=== PATIENT | female | born 1955 | race Caucasian/White ===

== ENCOUNTER 2021-12-08 10:41 | Inpatient (IN) ==
[2021-12-08] MEDS ORDERED: Fluticasone Propionate Nasal 50 MCG/SPRAY BOTTLE NS PRN (15:51)
[2021-12-08] MEDS ORDERED: D5% in Water 1,000 ML IVC PRN (15:53)
[2021-12-08] MEDS ORDERED: *HR* Dextrose 50 % in Water (Syg) 50 ML SYRINGE IVP PRN (15:53)
[2021-12-08] MEDS ORDERED: Dextrose Gel 15 GM/37.5 ML TUBE PO PRN ×2 (15:53)
[2021-12-08] MEDS: Torsemide 20 MG TABLET PO SCH (17:26)
[2021-12-08] MEDS: *HR* Metformin 500 MG TABLET PO SCH (17:27)
[2021-12-08] MEDS: Insulin LISPRO 300 UNITS/3 ML VIAL SUBQ SCH ×2 (17:30→21:50)
[2021-12-08] MEDS: Insulin DETEMIR 100 UNIT/ML X5UNITS SUBQ SCH (21:50)
[2021-12-09 08:15] LABS: Eosinophils # 0.1 K/mcL (0.0-0.6); Hematocrit 26.4 % (35.3-44.9); Hemoglobin 8.3 g/dL (11.5-15.4); Mean Corpuscular HGB Conc 31.4 g/dL (31.6-35.5); Mean Corpuscular Hemoglobin 27.2 pg (28.0-33.3); Mean Corpuscular Volume 86.6 fL (83.0-100.0); Mean Platelet Volume 10.2 fL (9.4-12.4); Platelet Count 140 K/mcL (140-400); Red Blood Count 3.05 M/mcL (3.82-4.97); Red Cell Distribution Width 15.1 % (11.5-14.5); White Blood Count 5.5 K/mcL (4.3-11.1)
[2021-12-09 08:30] LABS: Calcium 9.4 mg/dL (8.6-10.3); Potassium 3.3 mEq/L (3.5-5.1)
[2021-12-09] MEDS: *HR* Metformin 500 MG TABLET PO SCH (08:53)
[2021-12-09] MEDS: Loratadine 10 MG TABLET PO SCH (08:53)
[2021-12-09] MEDS: Torsemide 20 MG TABLET PO SCH ×2 (08:54→16:45)
[2021-12-09] MEDS: Insulin LISPRO 300 UNITS/3 ML VIAL SUBQ SCH ×4 (08:54→21:33)
[2021-12-09] MEDS: Lactulose Oral Soln 20 GM/30 ML UDC PO SCH (08:55)
[2021-12-09] MEDS: [UNRECOGNIZED DRUG - OTHER] PO SCH (08:56)
[2021-12-09] MEDS: Insulin DETEMIR 100 UNIT/ML X5UNITS SUBQ SCH ×2 (09:00→21:33)
[2021-12-09 09:10] LABS: Lymphocytes # 0.3 K/mcL (0.6-4.6); Monocytes # 0.3 K/mcL (0.0-1.3); Neutrophils # 4.6 K/mcL (1.6-8.9)
[2021-12-09 09:11] LABS: Platelet Estimate Normal (Normal)
[2021-12-09] MEDS: Benzonatate 100 MG CAPSULE PO SCH ×3 (12:39→21:31)
[2021-12-09] MEDS ORDERED: *HR* Heparin 5,000 UNIT/ML VIAL SQ SCH (14:00)
[2021-12-10 08:28] LABS: Basophils % 0.4 %; Eosinophils # 0.1 K/mcL (0.0-0.6); Eosinophils % 1.9 %; Hematocrit 26.2 % (35.3-44.9); Hemoglobin 8.2 g/dL (11.5-15.4); Immature Granulocytes % 4.7 % (0-4); Lymphocytes # 0.5 K/mcL (0.6-4.6); Lymphocytes % 11.2 %; Mean Corpuscular HGB Conc 31.3 g/dL (31.6-35.5); Mean Corpuscular Hemoglobin 27.1 pg (28.0-33.3); Mean Corpuscular Volume 86.5 fL (83.0-100.0); Monocytes # 0.4 K/mcL (0.0-1.3); Monocytes % 7.8 %; Neutrophils # 3.5 K/mcL (1.6-8.9); Platelet Count 136 K/mcL (140-400); Red Blood Count 3.03 M/mcL (3.82-4.97); Red Cell Distribution Width 15.2 % (11.5-14.5); White Blood Count 4.7 K/mcL (4.3-11.1)
[2021-12-10 08:44] LABS: Potassium 3.3 mEq/L (3.5-5.1)
[2021-12-10] MEDS: Torsemide 20 MG TABLET PO SCH ×2 (10:18→17:03)
[2021-12-10] MEDS: Multivit/Ca/Min/Fe/FA 1 TAB TABLET PO SCH (10:18)
[2021-12-10] MEDS: Loratadine 10 MG TABLET PO SCH (10:19)
[2021-12-10] MEDS: Benzonatate 100 MG CAPSULE PO SCH ×3 (10:19→21:20)
[2021-12-10] MEDS: Megestrol Acetate 400 MG/10 ML UDC PO SCH (10:20)
[2021-12-10] MEDS: Lactulose Oral Soln 20 GM/30 ML UDC PO SCH (10:20)
[2021-12-10] MEDS: Insulin LISPRO 300 UNITS/3 ML VIAL SUBQ SCH ×4 (10:21→21:23)
[2021-12-10] MEDS: Insulin DETEMIR 100 UNIT/ML X5UNITS SUBQ SCH ×2 (10:21→21:20)
[2021-12-10] MEDS: [UNRECOGNIZED DRUG - OTHER] PO SCH (10:22)
[2021-12-10] MEDS: Piperacillin/Tazobactam 3.375 GM in 0.9 % Sodium Chloride Mini Bag 100 ML IVPB SCH (15:13)
[2021-12-11] MEDS: Piperacillin/Tazobactam 3.375 GM in 0.9 % Sodium Chloride Mini Bag 100 ML IVPB SCH ×3 (00:14→15:35)
[2021-12-11] MEDS: Loratadine 10 MG TABLET PO SCH (08:08)
[2021-12-11] MEDS: Lactulose Oral Soln 20 GM/30 ML UDC PO SCH (08:08)
[2021-12-11] MEDS: Benzonatate 100 MG CAPSULE PO SCH ×3 (08:08→22:55)
[2021-12-11] MEDS: Spironolactone 25 MG TABLET PO SCH (08:08)
[2021-12-11] MEDS: [UNRECOGNIZED DRUG - OTHER] PO SCH (08:08)
[2021-12-11] MEDS: Multivit/Ca/Min/Fe/FA 1 TAB TABLET PO SCH (08:08)
[2021-12-11] MEDS: Torsemide 20 MG TABLET PO SCH ×2 (08:09→15:45)
[2021-12-11] MEDS: Megestrol Acetate 400 MG/10 ML UDC PO SCH (08:09)
[2021-12-11] MEDS: Insulin LISPRO 300 UNITS/3 ML VIAL SUBQ SCH ×4 (08:10→22:54)
[2021-12-11] MEDS: Insulin DETEMIR 100 UNIT/ML X5UNITS SUBQ SCH ×2 (08:43→22:54)
[2021-12-12] MEDS: Piperacillin/Tazobactam 3.375 GM in 0.9 % Sodium Chloride Mini Bag 100 ML IVPB SCH ×3 (04:09→22:51)
[2021-12-12] MEDS: Lactulose Oral Soln 20 GM/30 ML UDC PO SCH ×2 (07:57→20:02)
[2021-12-12] MEDS: Spironolactone 25 MG TABLET PO SCH (07:58)
[2021-12-12] MEDS: Benzonatate 100 MG CAPSULE PO SCH ×3 (07:58→20:03)
[2021-12-12] MEDS: Loratadine 10 MG TABLET PO SCH (07:58)
[2021-12-12] MEDS: Megestrol Acetate 400 MG/10 ML UDC PO SCH (07:58)
[2021-12-12] MEDS: Torsemide 20 MG TABLET PO SCH ×2 (07:58→17:08)
[2021-12-12] MEDS: Multivit/Ca/Min/Fe/FA 1 TAB TABLET PO SCH (07:58)
[2021-12-12] MEDS: [UNRECOGNIZED DRUG - OTHER] PO SCH (07:59)
[2021-12-12 08:00] LABS: Potassium 3.3 mEq/L (3.5-5.1)
[2021-12-12] MEDS: Insulin LISPRO 300 UNITS/3 ML VIAL SUBQ SCH ×4 (08:00→20:03)
[2021-12-12 08:16] LABS: Basophils % 0.3 %; Eosinophils % 0.3 %; Hematocrit 24.2 % (35.3-44.9); Hemoglobin 7.6 g/dL (11.5-15.4); Immature Granulocytes % 1.2 % (0-4); Lymphocytes # 0.5 K/mcL (0.6-4.6); Lymphocytes % 14.7 %; Mean Corpuscular HGB Conc 31.4 g/dL (31.6-35.5); Mean Corpuscular Hemoglobin 27.4 pg (28.0-33.3); Mean Corpuscular Volume 87.4 fL (83.0-100.0); Monocytes # 0.2 K/mcL (0.0-1.3); Monocytes % 6.1 %; Neutrophils # 2.7 K/mcL (1.6-8.9); Red Blood Count 2.77 M/mcL (3.82-4.97); Red Cell Distribution Width 15.2 % (11.5-14.5); Segmented Neutrophils % 77.4 %; White Blood Count 3.5 K/mcL (4.3-11.1)
[2021-12-12 09:00] LABS: Platelet Count < 2 K/mcL (140-400)
[2021-12-12] MEDS ORDERED: Insulin DETEMIR 100 UNIT/ML X5UNITS SUBQ SCH ×2 (09:00→21:00)
[2021-12-12 09:03] LABS: Platelet Estimate Marked Decrease (Normal)
[2021-12-12] MEDS ORDERED: 0.9 % Sodium Chloride 250 ML ONE ×2 (15:09→22:17)
[2021-12-12] MEDS ORDERED: Lactulose Oral Soln 20 GM/30 ML UDC PO SCH ×3 (20:00→21:00)
[2021-12-12] MEDS: Melatonin 3 MG TABLET PO PRN (20:03)
[2021-12-12] MEDS ORDERED: Insulin LISPRO 300 UNITS/3 ML VIAL SUBQ STA (23:13)
[2021-12-13 05:09] LABS: Basophils % 0.5 %; Eosinophils % 0.5 %; Hematocrit 24.6 % (35.3-44.9); Hemoglobin 7.7 g/dL (11.5-15.4); Immature Granulocytes % 1.6 % (0-4); Lymphocytes # 0.5 K/mcL (0.6-4.6); Lymphocytes % 12.5 %; Mean Corpuscular HGB Conc 31.3 g/dL (31.6-35.5); Mean Corpuscular Hemoglobin 26.9 pg (28.0-33.3); Monocytes # 0.2 K/mcL (0.0-1.3); Neutrophils # 2.9 K/mcL (1.6-8.9); Red Blood Count 2.86 M/mcL (3.82-4.97); Red Cell Distribution Width 15.4 % (11.5-14.5); Segmented Neutrophils % 78.9 %; White Blood Count 3.7 K/mcL (4.3-11.1)
[2021-12-13 05:36] LABS: Platelet Count 6 K/mcL (140-400)
[2021-12-13] MEDS: Piperacillin/Tazobactam 3.375 GM in 0.9 % Sodium Chloride Mini Bag 100 ML IVPB SCH ×3 (07:01→22:55)
[2021-12-13] MEDS: Multivit/Ca/Min/Fe/FA 1 TAB TABLET PO SCH (08:49)
[2021-12-13] MEDS: Torsemide 20 MG TABLET PO SCH ×2 (08:50→16:31)
[2021-12-13] MEDS: Loratadine 10 MG TABLET PO SCH (08:50)
[2021-12-13] MEDS: Benzonatate 100 MG CAPSULE PO SCH ×3 (08:51→22:56)
[2021-12-13] MEDS: amLODIPine 5 MG TABLET PO SCH (08:51)
[2021-12-13] MEDS: Spironolactone 25 MG TABLET PO SCH (08:51)
[2021-12-13] MEDS: Lactulose Oral Soln 20 GM/30 ML UDC PO SCH ×2 (08:52→22:53)
[2021-12-13] MEDS: Megestrol Acetate 400 MG/10 ML UDC PO SCH (08:52)
[2021-12-13] MEDS: Insulin LISPRO 300 UNITS/3 ML VIAL SUBQ SCH ×5 (08:54→22:59)
[2021-12-13] MEDS: [UNRECOGNIZED DRUG - OTHER] PO SCH (09:22)
[2021-12-13] MEDS: Insulin DETEMIR 100 UNIT/ML X5UNITS SUBQ SCH ×2 (11:03→22:56)
[2021-12-13] MEDS ORDERED: 0.9 % Sodium Chloride 250 ML ONE ×2 (14:13→22:38)
[2021-12-13] MEDS: Melatonin 3 MG TABLET PO PRN (22:56)
[2021-12-14] MEDS ORDERED: 0.9 % Sodium Chloride 250 ML ONE (02:54)
[2021-12-14] MEDS: Piperacillin/Tazobactam 3.375 GM in 0.9 % Sodium Chloride Mini Bag 100 ML IVPB SCH ×2 (05:08→14:26)
[2021-12-14 06:34] LABS: Basophils % 0.4 %; Eosinophils % 0.5 %; Hematocrit 25.8 % (35.3-44.9); Hemoglobin 8.2 g/dL (11.5-15.4); Immature Granulocytes % 1.1 % (0-4); Lymphocytes # 0.5 K/mcL (0.6-4.6); Lymphocytes % 9.2 %; Mean Corpuscular HGB Conc 31.8 g/dL (31.6-35.5); Mean Corpuscular Hemoglobin 27.3 pg (28.0-33.3); Mean Platelet Volume 10.2 fL (9.4-12.4); Monocytes # 0.3 K/mcL (0.0-1.3); Monocytes % 5.5 %; Neutrophils # 4.7 K/mcL (1.6-8.9); Segmented Neutrophils % 83.3 %; White Blood Count 5.6 K/mcL (4.3-11.1)
[2021-12-14 06:38] LABS: Platelet Count 5 K/mcL (140-400)
[2021-12-14 06:52] LABS: Calcium 9.2 mg/dL (8.6-10.3); Potassium 3.2 mEq/L (3.5-5.1)
[2021-12-14] MEDS: Loratadine 10 MG TABLET PO SCH (08:24)
[2021-12-14] MEDS: Spironolactone 25 MG TABLET PO SCH (08:24)
[2021-12-14] MEDS: Multivit/Ca/Min/Fe/FA 1 TAB TABLET PO SCH (08:24)
[2021-12-14] MEDS: Torsemide 20 MG TABLET PO SCH ×2 (08:24→17:32)
[2021-12-14] MEDS: Benzonatate 100 MG CAPSULE PO SCH ×2 (08:25→14:26)
[2021-12-14] MEDS: amLODIPine 5 MG TABLET PO SCH (08:25)
[2021-12-14] MEDS: Lactulose Oral Soln 20 GM/30 ML UDC PO SCH (08:25)
[2021-12-14] MEDS: Megestrol Acetate 400 MG/10 ML UDC PO SCH (08:25)
[2021-12-14] MEDS: Insulin LISPRO 300 UNITS/3 ML VIAL SUBQ SCH ×6 (08:29→17:38)
[2021-12-14] MEDS: Insulin DETEMIR 100 UNIT/ML X5UNITS SUBQ SCH (11:21)
[2021-12-14] MEDS: [UNRECOGNIZED DRUG - OTHER] PO SCH (11:22)
[2021-12-14 16:14] LABS: Hematocrit 26.7 % (35.3-44.9); Hemoglobin 8.5 g/dL (11.5-15.4); Mean Corpuscular HGB Conc 31.8 g/dL (31.6-35.5); Mean Corpuscular Hemoglobin 27.4 pg (28.0-33.3); Mean Corpuscular Volume 86.1 fL (83.0-100.0); Mean Platelet Volume 9.6 fL (9.4-12.4); Red Cell Distribution Width 16.4 % (11.5-14.5); White Blood Count 8.9 K/mcL (4.3-11.1)
[2021-12-14 16:18] LABS: Platelet Count 15 K/mcL (140-400)
[2021-12-14] MEDS ORDERED: methylPREDNISolone 125 MG/2 ML VIAL IVP ONE (16:23)
[2021-12-14] MEDS ORDERED: methylPREDNISolone 125 MG/2 ML VIAL ONE (16:29)
[2021-12-14] MEDS ORDERED: *HR* LORazepam 1 MG TABLET PO ONE (18:25)
[2021-12-14] MEDS ORDERED: Furosemide 40 MG/4 ML VIAL ONE (18:48)
[2021-12-14] MEDS ORDERED: Furosemide 40 MG/4 ML VIAL IVP ONE (18:49)
[2021-12-15 18:41] VITALS: BP 105/64; PULSE 72; RESP 12; TEMP 97.8; O2SAT 97
== END 2021-12-14 19:00 | disposition short-term general hospital (02) | DRG 871 ==
LOC: INPPIK 14:07
PROVIDERS: ADMIT Internal Medicine; ATTEND Internal Medicine